=== PATIENT | female | born 1960 | race Hispanic/Latino ===

== ENCOUNTER 2016-06-16 22:24 | Emergency (ER) | payer OTHER ==
[2016-06-16 22:32] VITALS: BP 98/70
[2016-06-16 23:02] LABS: Basophils % (Auto) 0.4 % (0.0-1.8); Hematocrit 38.8 % (30.3-42.9); Hemoglobin 13.3 gm/dl (10.1-14.3); Mean Corpuscular HGB Conc 34 % (30-34); Mean Corpuscular Hemoglobin 32 pg (28-32); Mean Corpuscular Volume 95 fl (79-97); Platelet Count 180 K/mm3 (140-440); Red Blood Count 4.11 M/mm3 (3.65-5.03); Red Cell Distribution Width 14.2 % (13.2-15.2); White Blood Count 8.3 K/mm3 (4.5-11.0)
[2016-06-16 23:19] LABS: Alanine Aminotransferase 13 units/L (7-56); Albumin 3.9 g/dL (3.9-5); Albumin/Globulin Ratio 1.4 %; Alkaline Phosphatase 90 units/L (35-129); Anion Gap 17 mmol/L; BUN/Creatinine Ratio 33.33; Bilirubin,Total 0.5 mg/dL (0.1-1.2); Blood Urea Nitrogen 20 mg/dL (7-17); Calcium 9.1 mg/dL (8.4-10.2); Carbon Dioxide 27 mmol/L (22-30); Chloride 98.5 mmol/L (98-107); Glucose 82 mg/dL (65-100); Lipase 43 units/L (13-60); Potassium 4.2 mmol/L (3.6-5.0); Sodium 138 mmol/L (137-145); Total Protein 6.6 g/dL (6.3-8.2)
== END 2016-06-16 23:39 | disposition left against medical advice (07) ==
LOC: ED 22:24
DX: R10.9 Unspecified abdominal pain (principal); Z53.21 Procedure and treatment not carried out due to patient leaving prior to being seen by health care provider
CPT/HCPCS: 36415; 80053; 83690; 85025

== ENCOUNTER 2017-01-17 14:34 | Emergency (ER) | payer OTHER ==
[2017-01-17 15:52] LABS: Basophils % (Auto) 0.7 % (0.0-1.8); Eosinophils % (Auto) 1.4 % (0.0-4.3); Hematocrit 43.2 % (30.3-42.9); Hemoglobin 14.9 gm/dl (10.1-14.3); Mean Corpuscular HGB Conc 35 % (30-34); Mean Corpuscular Hemoglobin 34 pg (28-32); Mean Corpuscular Volume 98 fl (79-97); Platelet Count 191 K/mm3 (140-440); Red Blood Count 4.41 M/mm3 (3.65-5.03); Red Cell Distribution Width 14.4 % (13.2-15.2); White Blood Count 6.5 K/mm3 (4.5-11.0)
[2017-01-17 15:58] LABS: Blood Urea Nitrogen 14 mg/dL (7-17); Calcium 9.2 mg/dL (8.4-10.2); Carbon Dioxide 29 mmol/L (22-30); Glucose 86 mg/dL (65-100)
[2017-01-17 15:59] LABS: Anion Gap 18 mmol/L; Chloride 99.9 mmol/L (98-107); Potassium 4.7 mmol/L (3.6-5.0); Sodium 142 mmol/L (137-145)
[2017-01-17 17:54] VITALS: BP 114/71
[2017-01-17] MEDS ORDERED: NORCO 5/325 PO ONE (17:57)
[2017-01-17] MEDS ORDERED: ALUM-MAG HYDROX-SIMETH 200-200-20MG/5ML PO ONE (18:21)
[2017-01-17] MEDS ORDERED: PEPCID IV ONE (18:21)
[2017-01-17] MEDS ORDERED: CARAFATE PO ONE (18:21)
--- NOTE | 2017-01-17 18:23 | Emergency Department Report ---
ED Chest Pain HPI - General Chief Complaint: Chest Pain Stated Complaint: CHEST PAIN Time Seen by Provider: 01/17/17 17:09 Source: patient, RN notes reviewed, old records reviewed Mode of arrival: Wheelchair Limitations: No Limitations - History of Present Illness Initial Comments: This is a 56-year-old female. She is previously unknown today. Patient reports a past medical history of rheumatoid arthritis, fibromyalgia, ulcerative esophagitis. Patient admitted to the hospital last year for syncope , had an echocardiogram which demonstrated an ejection fraction of 40-45%, and had a nuclear stress test which was negative for ischemia. The patient presents to the ER with a complaint of central and left-sided chest pain. The pain is associated with left upper extremity discomfort. There is no vomiting, diaphoresis. The patient does not have shortness of breath, but she endorses difficulty with breathing, and cannot further elaborate. There is no posterior leg pain. There is no posterior leg pain, or swelling. No recent aspirin use, no recent cocaine use, no recent trips or hospitalizations, no association with food, and the patient denies a family history of cardiac disease that she is aware of. The patient does not have exacerbating or relieving factors. MD Complaint: chest pain -: Gradual Onset: during rest Pain Location: left chest Pain Radiation: LUE Severity: mild Severity scale (0 -10): 9 Quality: heaviness Consistency: intermittent Improves With: nothing Worsens With: nothing re: denies: vomting, diaphoresis, sense of impending doom Other Symptoms: acid taste in mouth. denies: cough, fever, syncope, rash Aspirin use within the Past 7 Days: (0) No - Related Data On Oral Contraceptives: No Home Medications Medication Instructions Recorded Confirmed Last Taken Diazepam [Valium] 10 mg PO BID 12/21/15 08/02/16 08/02/16 07:30 Gabapentin [Neurontin] 300 mg PO Q8HR 12/21/15 08/02/16 08/02/16 07:30 ALBUTEROL Inhaler [ProAir HFA 2 puff IH QID PRN 07/26/16 07/26/16 Unknown Inhaler] Levothyroxine [Synthroid] 25 mcg PO QAM 07/26/16 08/02/16 08/02/16 07:30 Omeprazole 40 mg PO BID 07/26/16 08/02/16 08/01/16 21:00 Prochlorperazine [Compazine] 10 mg PO Q6HR PRN 07/26/16 08/02/16 08/01/16 21:00 SUMAtriptan SUCCINATE [Imitrex] 50 mg PO ONCE 07/26/16 08/02/16 07/05/16 Trazodone HCl 50 mg PO QHS 07/26/16 08/02/16 08/01/16 21:00 Previous Rx's Medication Instructions Recorded Last Taken Type HYDROcodone/APAP 10-325 [[place] 1 each PO Q6HR PRN #20 tablet 08/02/16 Unknown Rx 10-325 mg TAB] Famotidine [Pepcid] 20 mg PO BID #10 tablet 01/17/17 Unknown Rx Sucralfate [Carafate] 1 gm PO ACHS #120 tablet 01/17/17 Unknown Rx Allergies Allergy/AdvReac Type Severity Reaction Status Date / Time adhesive tape Allergy Rash Verified 12/21/15 17:51 diphenhydramine HCl Allergy Anaphylaxis Verified 12/21/15 17:51 [From Benadryl] ketorolac tromethamine Allergy Hives Verified 12/21/15 17:51 [From Toradol] Penicillins Allergy Itching Verified 12/21/15 17:51 promethazine HCl Allergy Hives Verified 12/21/15 17:51 [From Phenergan] Sulfa (Sulfonamide Allergy Angioedema Verified 12/21/15 17:51 Antibiotics) Heart Score - HEART Score History: Slightly suspicious EKG: Normal Age: 45-65 Risk factors: 1-2 risk factors Troponin: < normal limit HEART Score: 2 - Critical Actions Critical Actions: 0-3 pts:0.9-1.7%risk of adverse cardiac event.Candidate for discharge ED Review of Systems ROS: Stated complaint: CHEST PAIN Other details as noted in HPI Constitutional: denies: fever Eyes: denies: vision change ENT: denies: epistaxis Respiratory: denies: cough Cardiovascular: chest pain Gastrointestinal: denies: vomiting Genitourinary: denies: dysuria Musculoskeletal: denies: arthralgia Skin: denies: lesions Neurological: denies: headache Psychiatric: denies: anxiety ED Past Medical Hx - Past Medical History Hx Congestive Heart Failure: Yes (diagnosed before gastric bypass/now resolved) Hx Diabetes: No Hx GERD: Yes Hx Arthritis: Yes (Rheumatoid arthritis) Hx Headaches / Migraines: Yes (MIGRAINES) Hx Asthma: Yes Hx HIV: No Additional medical history: Hiatal Hernia, ulcerated esophagus. Pneumonia. Fibromyalgia. TIA - Surgical History Hx Cholecystectomy: Yes ([place] 2009) Additional Surgical History: 7 hernia repairs, bladder repair. Gastric Bypass. Gallbladder. Hysterectomy - Social History Smoking Status: Current Every Day Smoker Substance Use Type: None - Medications Home Medications: Home Medications Medication Instructions Recorded Confirmed Last Taken Type Diazepam [Valium] 10 mg PO BID 12/21/15 08/02/16 08/02/16 07:30 History Gabapentin [Neurontin] 300 mg PO Q8HR 12/21/15 08/02/16 08/02/16 07:30 History ALBUTEROL Inhaler [ProAir HFA 2 puff IH QID PRN 07/26/16 07/26/16 Unknown History Inhaler] Levothyroxine [Synthroid] 25 mcg PO QAM 07/26/16 08/02/16 08/02/16 07:30 History Omeprazole 40 mg PO BID 07/26/16 08/02/16 08/01/16 21:00 History Prochlorperazine [Compazine] 10 mg PO Q6HR PRN 07/26/16 08/02/16 08/01/16 21:00 History SUMAtriptan SUCCINATE [Imitrex] 50 mg PO ONCE 07/26/16 08/02/16 07/05/16 History Trazodone HCl 50 mg PO QHS 07/26/16 08/02/16 08/01/16 21:00 History HYDROcodone/APAP 10-325 [[place] 1 each PO Q6HR PRN #20 tablet 08/02/16 Unknown Rx 10-325 mg TAB] Famotidine [Pepcid] 20 mg PO BID #10 tablet 01/17/17 Unknown Rx Sucralfate [Carafate] 1 gm PO ACHS #120 tablet 01/17/17 Unknown Rx ED Physical Exam - General Limitations: No Limitations General appearance: alert, in no apparent distress - Head Head exam: Present: atraumatic, normocephalic - Eye Eye exam: Present: normal appearance, EOMI. Absent: nystagmus - ENT ENT exam: Present: normal exam, normal orophraynx, mucous membranes moist, normal external ear exam - Neck Neck exam: Present: normal inspection, full ROM. Absent: tenderness, meningismus - Respiratory Respiratory exam: Present: normal lung sounds bilaterally. Absent: respiratory distress, wheezes, rales, rhonchi, stridor, chest wall tenderness, accessory muscle use, decreased breath sounds, prolonged expiratory - Cardiovascular Cardiovascular Exam: Present: regular rate, normal rhythm, normal heart sounds. Absent: bradycardia, tachycardia, irregular rhythm, systolic murmur, diastolic murmur, rubs, gallop - GI/Abdominal GI/Abdominal exam: Present: soft, normal bowel sounds. Absent: distended, tenderness, guarding, rebound, rigid, pulsatile mass - Extremities Exam Extremities exam: Present: normal inspection, full ROM, normal capillary refill. Absent: tenderness, pedal edema, joint swelling, calf tenderness - Back Exam Back exam: Present: normal inspection, full ROM. Absent: tenderness, CVA tenderness (R), CVA tenderness (L), muscle spasm, paraspinal tenderness, vertebral tenderness - Neurological Exam Neurological exam: Present: alert, oriented X3, normal gait, other (Extraocular movements intact. Tongue midline. No facial droop. Facial sensation intact to light touch in the V1, V2, V3 distribution bilaterally. 5 and 5 strength in 4 extremities.. Sensation is intact to light touch in 4 extremities.). Absent : motor sensory deficit - Psychiatric Psychiatric exam: Present: normal affect, normal mood - Skin Skin exam: Present: warm, dry, intact, normal color. Absent: rash ED Course Vital Signs 01/17/17 01/17/17 01/17/17 14:54 15:31 17:51 Temperature 97.7 F 98.4 F 98.5 F Pulse Rate 82 80 89 Respiratory 16 20 14 Rate Blood Pressure 101/63 112/87 Blood Pressure 114/71 [Left] O2 Sat by Pulse 100 98 95 Oximetry NIMA score - Nima Score Age > 65: (0) No Aspirin use within the Past 7 Days: (0) No 3 or more CAD Risk Factors: (0) No 2 or more Angina events in past 24 hrs: (0) No Known CAD with more than 50% Stenosis: (0) No Elevated Cardiac Markers: (0) No ST Deviation Greater than 0.5mm: (0) No NIMA Score: 0 ED Medical Decision Making - Lab Data Result diagrams: 01/17/17 15:21 01/17/17 15:21 Vital Signs 01/17/17 01/17/17 01/17/17 14:54 15:31 17:51 Temperature 97.7 F 98.4 F 98.5 F Pulse Rate 82 80 89 Respiratory 16 20 14 Rate Blood Pressure 101/63 112/87 Blood Pressure 114/71 [Left] O2 Sat by Pulse 100 98 95 Oximetry Lab Results 01/17/17 01/17/17 01/17/17 Range/Units 15:21 15:21 17:26 WBC 6.5 (4.5-11.0) K/mm3 RBC 4.41 (3.65-5.03) M/mm3 Hgb 14.9 H (10.1-14.3) gm/dl Hct 43.2 H (30.3-42.9) % MCV 98 H (79-97) fl MCH 34 H (28-32) pg MCHC 35 H (30-34) % RDW 14.4 (13.2-15.2) % Plt Count 191 (140-440) K/mm3 Lymph % (Auto) 31.0 (13.4-35.0) % [place] % (Auto) 5.9 (0.0-7.3) % Eos % (Auto) 1.4 (0.0-4.3) % Baso % (Auto) 0.7 (0.0-1.8) % Lymph # 2.0 (1.2-5.4) K/mm3 [place] # 0.4 (0.0-0.8) K/mm3 Eos # 0.1 (0.0-0.4) K/mm3 Baso # 0.0 (0.0-0.1) K/mm3 Seg Neutrophils % 61.0 (40.0-70.0) % Seg Neutrophils # 4.0 (1.8-7.7) K/mm3 Sodium 142 (137-145) mmol/L Potassium 4.7 (3.6-5.0) mmol/L Chloride 99.9 (98-107) mmol/L Carbon Dioxide 29 (22-30) mmol/L Anion Gap 18 mmol/L BUN 14 (7-17) mg/dL Creatinine 0.4 L (0.7-1.2) mg/dL Estimated GFR > 60 ml/min BUN/Creatinine Ratio 35.00 % Glucose 86 (65-100) mg/dL Calcium 9.2 (8.4-10.2) mg/dL Troponin T < 0.010 < 0.010 (0.00-0.029) ng/mL - EKG Data -: EKG Interpreted by Me - EKG Data 01/17/17 19:55 EKG #1 demonstrates normal sinus, 74 bpm, normal axis, normal intervals, premature ventricular contractions EKG #2 demonstrates normal sinus, normal intervals, premature ventricular contraction, not consistent with STEMI. EKG is unchanged when compared to prior EKG from 12/22/2015 - Radiology Data Radiology results: image reviewed interpreted by me: X-ray of the chest is negative - Medical Decision Making Differential diagnosis: Acute coronary syndrome, GERD/gastritis, pneumonia, costochondritis, Assessment and plan: 56-year-old female with chest pain. She is afebrile with reassuring vital signs. No pulmonary embolus or DVT risk factors, low risk by well's criteria, low risk by NIMA score, low risk by heart score, troponins negative 2, EKG unremarkable and unchanged 2 and unchanged from prior, and patient had a negative nuclear stress test approximately one year ago. Case is discussed with cardiology on-call, Dr. Burnham. Given Negative nuclear stress test last year, negative troponins 2, EKG unchanged 2 , I do not believe the patient requires admission to the hospital for repeat acute coronary syndrome risk stratification. Cardiology agrees that patient would be suitable to follow-up for possible repeat outpatient ACS risk stratification.. She will also be referred to outpatient gastroenterology. Her pain was treated symptomatically. Critical care attestation.: If time is entered above; I have spent that time in minutes in the direct care of this critically ill patient, excluding procedure time. ED Disposition Clinical Impression: Chest pain Disposition: DC-01 TO HOME OR SELFCARE Is pt being admited?: No Does the pt Need Aspirin: No Condition: Stable Instructions: Chest Pain (ED), Gastritis (ED) Additional Instructions: Continue current outpatient medications. Avoid consumption of heavy, spicy foods, ibuprofen, Motrin, Naprosyn. Follow up with the listed director mobile, or any director mobile within the next 3-5 days. Follow up with a financial services auditor within the next [address] Friedman is a local financial services auditor. [facility] has a patient service hotline which can be contacted at the following phone number: Dr Burnham is a local information systems security specialist. [phone] ([phone]) Return to the ER right away with new pain, worsened pain, migration of pain, fevers, chills, confusion, severe shortness of breath, intractable nausea or vomiting, inability to tolerate liquid feeds. Prescriptions: Famotidine [Pepcid] 20 mg PO BID #10 tablet Sucralfate [Carafate] 1 gm PO ACHS #120 tablet Referrals: PRIMARY CARE, [Primary Care Provider] - 3-5 Days ANKIT BURNHAM MD [Staff Physician] - 3-5 Days IVANA FRIEDMAN MD [Staff Physician] - 3-5 Days
--- NOTE | 2017-01-18 09:33 | XRay Report ---
CHEST XRAY, 2 VIEWS: History: Chest pain. Findings: Compared to 12/21/15. There is mild diffuse interstitial coarsening. The lungs are hyperexpanded but clear. No infiltrate, pleural fluid or pneumothorax is detected. The cardiac silhouette and pulmonary vasculature are within normal limits for technique. The bony thorax is unremarkable. IMPRESSION: Changes consistent with COPD. No acute cardiopulmonary process.
== END 2017-01-17 20:32 | disposition home or self-care (01) ==
LOC: ED 14:34
DX: R07.9 Chest pain, unspecified (principal); I50.9 Heart failure, unspecified; K21.9 Gastro-esophageal reflux disease without esophagitis; G43.909 Migraine, unspecified, not intractable, without status migrainosus; J45.909 Unspecified asthma, uncomplicated; F17.200 Nicotine dependence, unspecified, uncomplicated
CPT/HCPCS: 36415; 71020; 80048; 84484; 85025; 93005; 93010; 96374